=== PATIENT | female | born 1980 ===

== ENCOUNTER 2019-06-15 05:31 | Inpatient (IN) ==
[2019-06-05 10:57] LABS: Basophils % 0.3 % (0.0-0.8); Eosinophils # 0.1 10*3/uL (0.0-0.87); Eosinophils % 1.7 % (0.00-10.9); Hematocrit 36.3 VOL% (35.7-47.0); Hemoglobin 11.9 GM/DL (12.0-16.0); Immature Granulocytes % 0.3 %; Immature Granulocytes Absolute 0.02 #; Lymphocytes # 2.1 10*3/uL (1.4-4.0); Lymphocytes % 29.3 % (21.3-54.2); Mean Corpuscular HGB Conc 32.8 GM/DL (32-36); Mean Corpuscular Volume 88.5 FL (87-102); Mean Platelet Volume 9.6 FL (9.6-12.0); Monocytes % 5.5 % (1.7-12.7); Neutrophils % 62.9 % (38.7-73.9); Platelet Count 320 T/CUMM (130-400); Red Cell Distribution Width 14.4 % (9.3-17.3)
[2019-06-05 11:03] LABS: Apearance,Urine CLOUDY (Clear); Bilirubin,Urine Negative (Negative); Blood, Urine Negative (Negative); Glucose,Urine (UA) Negative (Negative); Ketones,Urine 5 mg/dL (Negative); Mucus,Urine Many /LPF (Occasional); Nitrite,Urine Negative (Negative); Protein,Urine 30 MG/DL; RBC,Urine 2 /HPF (0-4); Squamous Epithelial Cell,Urine Many /HPF (0-10); Urine Color Amber (Yellow); Urine Specific Gravity 1.031 (1.001-1.035); WBC,Urine 1 /HPF (0-6)
[2019-06-05 11:16] LABS: Band Neutrophils 1 % (0-10); Hypochromasia 1+; Lymphocytes 24 % (20-55); Platelet Estimate Adequate; Segmented Neutrophils 67 % (50-85); Total Cells Counted 100
[2019-06-05 11:32] LABS: Albumin 3.5 G/DL (3.4-5.0); Bilirubin,Total 0.8 MG/DL (0.2-1.0); Calcium 9.1 MG/DL (8.5-10.1); Osmolality,Calculated 279.3 MOS/KG (273-304); Risk Ratio 2.68; Total Protein 8.1 G/DL (6.4-8.3)
[2019-06-05 12:11] LABS: HIV Antigen/Antibody Result Nonreactive (Nonreactive)
[2019-06-15] MEDS ORDERED: AMPICILLIN/SULBACTAM 3,000 MG in SODIUM CHLORIDE 0.9% 100 ML IV ONE (06:00)
[2019-06-15] MEDS ORDERED: LACTATED RINGERS 1,000 ML IV SCH (07:30)
[2019-06-15] MEDS ORDERED: SCOPOLAMINE 1.5 MG PATCH TRANSDERM ONE (10:11)
[2019-06-15] MEDS ORDERED: FAMOTIDINE 20 MG/2 ML VIAL IV ONE (10:12)
[2019-06-15] MEDS ORDERED: METOCLOPRAMIDE 10 MG/2 ML VIAL ONE (10:12)
[2019-06-15] MEDS ORDERED: HYDROmorphone 2 MG/1 ML VIAL ONE (11:51)
[2019-06-15] MEDS ORDERED: ALBUMIN 5% 12.5 GM/250 ML VIAL IV ONE ×2 (12:03→12:12)
[2019-06-15] MEDS ORDERED: NALOXONE 0.4 MG/ML VIAL IV PRN (12:30)
[2019-06-15] MEDS ORDERED: diphenhydrAMINE 50 MG/1 ML VIAL IV PRN (12:30)
[2019-06-15] MEDS ORDERED: HYDROmorphone PCA 30 MG/30 ML SYRINGE IV SCH (12:30)
[2019-06-15] MEDS ORDERED: ONDANSETRON 4 MG/2 ML VIAL IV PRN ×2 (12:55→13:23)
[2019-06-15] MEDS ORDERED: ACETAMINOPHEN 325 MG TABLET PO PRN (12:55)
[2019-06-15] MEDS ORDERED: BENZOCAINE/MENTHOL LOZENGE 18/BOX PO PRN (12:55)
[2019-06-15] MEDS ORDERED: BISACODYL 10 MG SUPP RECTAL PRN (12:55)
[2019-06-15] MEDS ORDERED: SODIUM CHLORIDE 0.9% 1,000 ML IV PRN (13:13)
[2019-06-15] MEDS ORDERED: MIDAZOLAM 2 MG/2 ML VIAL ONE (13:15)
[2019-06-15] MEDS ORDERED: DESFLURANE 1 UNIT/15 MINUTE INH ONE (13:15)
[2019-06-15] MEDS ORDERED: propofoL 200 MG/20 ML VIAL IV ONE (13:16)
[2019-06-15] MEDS ORDERED: fentaNYL 100 MCG/2 ML VIAL ONE (13:16)
[2019-06-15] MEDS ORDERED: DEXAMETHASONE 4 MG/1 ML VIAL ONE (13:16)
[2019-06-15] MEDS ORDERED: ONDANSETRON 4 MG/2 ML VIAL ONE (13:16)
[2019-06-15] MEDS ORDERED: GLYCOPYRROLATE 0.4 MG/2 ML VIAL ONE (13:16)
[2019-06-15] MEDS ORDERED: LIDOCAINE 2% 5 ML VIAL ONE (13:16)
[2019-06-15] MEDS ORDERED: LACTATED RINGERS 1,000 ML IV ONE (13:17)
[2019-06-15] MEDS ORDERED: NEOSTIGMINE 10 MG/10 ML VIAL ONE (13:17)
[2019-06-15] MEDS ORDERED: ROCURONIUM 100 MG/10 ML VIAL IV ONE (13:17)
[2019-06-15] MEDS ORDERED: ACETAMINOPHEN 1,000 MG/100 ML VIAL IV ONE (13:17)
[2019-06-15] MEDS ORDERED: PROMETHAZINE INJ 25 MG in SODIUM CHLORIDE 0.9% 50 ML IV PRN (13:23)
[2019-06-15] MEDS ORDERED: MEPERIDINE 25 MG/1 ML VIAL IV PRN (13:23)
[2019-06-15] MEDS ORDERED: KETOROLAC 15 MG/1 ML VIAL IV SCH (13:30)
[2019-06-15] MEDS ORDERED: diphenhydrAMINE 50 MG/1 ML VIAL IV ONE (13:34)
[2019-06-15] MEDS: LACTATED RINGERS 1,000 ML IV SCH ×2 (13:43→23:57)
[2019-06-15 13:58] LABS: Apearance,Urine CLEAR (Clear); Bilirubin,Urine Negative (Negative); Blood, Urine Negative (Negative); Glucose,Urine (UA) Negative (Negative); Ketones,Urine Negative (Negative); Mucus,Urine Occasional /LPF (Occasional); Nitrite,Urine Negative (Negative); Protein,Urine Negative; RBC,Urine 2 /HPF (0-4); Squamous Epithelial Cell,Urine Occasional /HPF (0-10); Urine Color Yellow (Yellow); Urine Specific Gravity 1.028 (1.001-1.035); Urine Urobilinogen < 2.0 EU/DL (0.2-1.0); WBC,Urine <1 /HPF (0-6)
[2019-06-15] MEDS: diphenhydrAMINE 50 MG/1 ML VIAL IV PRN ×2 (15:25→22:13)
[2019-06-15] MEDS: ceFAZolin 1,000 MG in SYRINGE 1 EACH IV SCH (18:10)
[2019-06-15 19:35] LABS: Basophils % 0.3 % (0.0-0.8); Hematocrit 32.2 VOL% (35.7-47.0); Hemoglobin 10.2 GM/DL (12.0-16.0); Immature Granulocytes % 0.7 %; Immature Granulocytes Absolute 0.09 #; Lymphocytes # 0.7 10*3/uL (1.4-4.0); Lymphocytes % 5.5 % (21.3-54.2); Mean Corpuscular HGB Conc 31.7 GM/DL (32-36); Mean Corpuscular Volume 93.6 FL (87-102); Mean Platelet Volume 9.1 FL (9.6-12.0); Monocytes % 1.5 % (1.7-12.7); Platelet Count 243 T/CUMM (130-400); Red Blood Count 3.44 MC/CUMM (3.8-5.5); Red Cell Distribution Width 15.4 % (9.3-17.3)
[2019-06-15 20:15] LABS: Band Neutrophils 3 % (0-10); Hypochromasia Slight; Lymphocytes 4 % (20-55); Segmented Neutrophils 91 % (50-85); Total Cells Counted 100
[2019-06-15 20:16] LABS: Platelet Estimate Adequate
[2019-06-15] MEDS ORDERED: KETOROLAC 60 MG/2 ML VIAL IM ONE (22:00)
[2019-06-15] MEDS: KETOROLAC 15 MG/1 ML VIAL IV SCH (22:21)
[2019-06-16] MEDS ORDERED: SODIUM CHLORIDE 0.9% 50 ML IV ONE (03:18)
[2019-06-16] MEDS: ceFAZolin 1,000 MG in SYRINGE 1 EACH IV SCH (03:20)
[2019-06-16 04:41] LABS: Basophils % 0.1 % (0.0-0.8); Hemoglobin 8.9 GM/DL (12.0-16.0); Immature Granulocytes % 0.5 %; Immature Granulocytes Absolute 0.05 #; Lymphocytes # 1.3 10*3/uL (1.4-4.0); Lymphocytes % 12.5 % (21.3-54.2); Mean Corpuscular HGB Conc 31.8 GM/DL (32-36); Mean Corpuscular Volume 92.7 FL (87-102); Mean Platelet Volume 9.5 FL (9.6-12.0); Monocytes % 5.5 % (1.7-12.7); Neutrophils % 81.4 % (38.7-73.9); Platelet Count 240 T/CUMM (130-400); Red Blood Count 3.02 MC/CUMM (3.8-5.5); Red Cell Distribution Width 15.6 % (9.3-17.3); White Blood Count 10.3 T/CUMM (4-12)
[2019-06-16] MEDS: KETOROLAC 15 MG/1 ML VIAL IV SCH ×2 (05:22→09:30)
[2019-06-16] MEDS: DOCUSATE SODIUM 100 MG CAPSULE PO PRN (09:02)
[2019-06-16] MEDS: MAGNESIUM HYDROXIDE SUSP 30 ML UDCUP PO PRN (09:03)
[2019-06-16] MEDS: SIMETHICONE CHEW 80 MG TABLET PO PRN (09:04)
[2019-06-16] MEDS: IBUPROFEN 800 MG TABLET PO PRN ×2 (13:38→21:20)
[2019-06-16] MEDS: LOSARTAN 50 MG TABLET PO SCH ×2 (16:31→21:37)
[2019-06-16] MEDS: hydroCHLOROthiazide 25 MG TABLET PO SCH (16:31)
[2019-06-16] MEDS: FERROUS SULFATE 325 MG TABLET PO SCH (20:38)
[2019-06-16] MEDS ORDERED: METOCLOPRAMIDE 10 MG TABLET PO PRN (21:00)
[2019-06-16] MEDS ORDERED: ZALEPLON 5 MG CAPSULE PO SCH (21:00)
[2019-06-17 08:28] VITALS: BP 145/90
[2019-06-17] MEDS: SIMETHICONE CHEW 80 MG TABLET PO PRN (09:29)
[2019-06-17] MEDS: FERROUS SULFATE 325 MG TABLET PO SCH (09:29)
[2019-06-17] MEDS: DOCUSATE SODIUM 100 MG CAPSULE PO PRN (09:29)
[2019-06-17] MEDS: LOSARTAN 50 MG TABLET PO SCH (09:30)
[2019-06-17] MEDS: MAGNESIUM HYDROXIDE SUSP 30 ML UDCUP PO PRN (09:30)
[2019-06-17] MEDS: hydroCHLOROthiazide 25 MG TABLET PO SCH (09:30)
[2019-06-17] MEDS: IBUPROFEN 800 MG TABLET PO PRN (09:35)
[2019-06-17] MEDS ORDERED: hydroCHLOROthiazide 25 MG TABLET PO SCH (15:41)
== END 2019-06-17 14:30 | disposition home or self-care (01) | DRG 743 ==
LOC: N.SDSINP 05:31 → N.OR 05:31 → N.SDSINP 12:54 → N.OB 14:52
PROVIDERS: ADMIT Obstetrics & Gynecology; ATTEND Obstetrics & Gynecology